=== PATIENT | male | born 1975 | race Caucasian/White ===

== ENCOUNTER 2020-03-08 12:38 | Emergency (ER) | payer OTHER, SELFPAY ==
--- NOTE | ~2020-03-08 | XR_ITS ---
EXAMINATION: XR knee RT 3V EXAM DATE: 03/08/2020 16:44 INDICATION: Abscess, anterior knee wound. TECHNIQUE: Three projections of the right knee. There is no prior study for comparison. FINDINGS: Anterior to the right tibial tuberosity and patellar tendon there is extensive swelling, e vidence of some foci of gas which could be ulceration or subcutaneous gas, and some other densities o f uncertain clinical significance (has would been packed with antibiotic beads?) There are no acute f ractures or dislocations identified. There is no subcutaneous gas. There are no radiopaque foreign bodies. There is no knee joint effusion and only mild edema within Hoffa's fat pad. IMPRESSION: Soft tissue swelling, some gas or ulceration and small round densities at site of wound. Clinical correlation. Reviewed, dictated and finalized at location A. IMPRESSION: Soft tissue swelling, some gas or ulceration and small round densit ies at site of wound. Clinical correlation.
[2020-03-08 12:54] VITALS: BP 118/81; PULSE 89; RESP 16; TEMP 36.6; O2SAT 99
--- NOTE | 2020-03-08 13:40 | ED.GENADULT ---
HPI - General Adult General Chief complaint: Wound/Laceration <Silver Parker PA-C - Last Filed: 03/08/20 18:17> Stated complaint: knee pain/infection <Silver Parker PA-C - Last Filed: 03/08/20 18:17> Time Seen by Provider: 03/08/20 13:16 <Silver Parker PA-C - Last Filed: 03/08/20 18:17> Source: patient <Silver Parker PA-C - Last Filed: 03/08/20 18:17> Mode of arrival: ambulatory <Silver Parker PA-C - Last Filed: 03/08/20 18:17> Limitations: no limitations <Silver Parker PA-C - Last Filed: 03/08/20 18:17> History of Present Illness HPI narrative: Patient is a 44-year-old male who presents with infection to the right knee patient has red tender area draining purulent drainage started as a small infected hair patient was started on Bactrim is taken 5 doses but continues to have purulent drainage presents for evaluation denies injury trauma similar occurrence or other complaints <Silver Parker PA-C - Last Filed: 03/08/20 18:17> Related Data Allergies/adverse reactions: Allergies Allergy/AdvReac Type Severity Reaction Status Date / Time No Known Allergies Allergy Verified 03/08/20 13:24 <Silver Parker PA-C - Last Filed: 03/08/20 18:17> Review of Systems Review of Systems: All systems reviewed & are unremarkable except as noted in HPI and below <Silver Parker PA-C - Last Filed: 03/08/20 18:17> [facility] Social History Social History: Social History (Updated 03/08/20 @ 13:41 by Silver Parker PA-C) Smoking status: Never smoker Gender identity (if verbalized by the patient): Male Sexual Orientation (if Verbalized by the Patient): Straight or Heterosexual <Silver Parker PA-C - Last Filed: 03/08/20 18:17> Exam Narrative: Exam Narrative: GENERAL: Well-appearing, well-nourished, and in no acute distress. HEAD: Normocephalic, atraumatic. EYES: PERRLA and EOMI. ENT: Nares clear, no rhinorrhea or epistaxis. Mucous membranes moist. CHEST: Clear to auscultation. No respiratory distress. No wheezes rales or rhonchi HEART: Regular rate and rhythm. No murmur heard. EXTREMITIES: Normal range of motion. No edema. SKIN: Warm, dry, no rash. Patient with swollen pink area over the right anterior knee with multiple open areas draining purulent drainage no surrounding cellulitic changes no lymphangitic streaking. NEURO: No focal deficits. Alert and oriented x3. Cranial nerves II through XII grossly intact PSYCH: Normal mood and affect. <LAURA Swanson Last Filed: 03/08/20 18:17> Course Course Emergency Course: Patient in the room at this time aware of case findings treatment plan and diagnosis had I&D given IV antibiotic will be referred to primary care for further evaluation <LAURA Swanson Last Filed: 03/08/20 18:17> Consultations Consultation #1: Discussed case with general surgery who notes the patient can follow with primary care and does not warrant general surgery evaluation <LAURA Swanson Last Filed: 03/08/20 18:17> Date: 03/08/20 <LAURA Swanson Last Filed: 03/08/20 18:17> Time: 17:44 <LAURA Swanson Last Filed: 03/08/20 18:17> Vital Signs Vital signs: Vital Signs Temperature 36.6 C 03/08/20 12:54 Pulse Rate 89 03/08/20 12:54 Respiratory Rate 16 03/08/20 12:54 Blood Pressure 118/81 03/08/20 12:54 Pulse Oximetry 99 03/08/20 12:54 Temperature 36.6 C 03/08/20 12:54 Pulse Rate 70 03/08/20 18:40 Respiratory Rate 18 03/08/20 18:40 Blood Pressure 123/71 03/08/20 18:40 Pulse Oximetry 98 03/08/20 18:40 <LAURA Swanson Last Filed: 03/08/20 18:17> Vital Signs Temperature 36.6 C 03/08/20 12:54 Pulse Rate 89 03/08/20 12:54 Respiratory Rate 16 03/08/20 12:54 Blood Pressure 118/81 03/08/20 12:54 Pulse Oximetry 99 03/08/20 12:54 Temperature 36.6 C 03/08/20 12:54 Pulse R
[2020-03-08] MEDS: LIDOCAINE HCL 1% LOCAL INJ 20 ML VIAL (16:27)
[2020-03-08 16:31] LABS: Basophils Percent Auto 0.4 % (0.2-1.2); Eosinophils Absolute Auto 0.1 K/mm3 (0-0.3); Eosinophils Percent Auto 1.9 % (0-4.4); Hematocrit 40.8 % (42.0-52.0); Hemoglobin 14.1 g/dL (14.0-18.0); Immature Granulocyte Absolute 0.01 K/mm3 (0.00-0.031); Immature Granulocyte Percent A 0.2 % (0-0.5); Lymphocytes Absolute Auto 1.02 K/mm3 (0.9-3.2); Lymphocytes Percent Auto 19.1 % (18.3-44.2); Mean Corpuscular HGB Conc 34.6 g/dl (32-36); Mean Corpuscular Volume 92.5 fl (80-100); Mean Platelet Volume 9.8 fl (7.4-10.4); Monocytes Absolute Auto 0.4 K/mm3 (0.1-0.6); Monocytes Percent Auto 6.6 % (2.6-8.5); Neutrophils Absolute Auto 3.8 K/mm3 (1.3-6.7); Neutrophils Percent Auto 71.8 % (45.5-73.1); Platelet Count Result 223 k/mm3 (150-375); Red Blood Count 4.41 M/mm3 (4.6-6.20); Red Cell Distribution Width 11.8 % (11.5-14.5); White Blood Count 5.3 K/mm3 (4.5-10.0)
[2020-03-08] MEDS: IBUPROFEN IV 800 MG/200 ML 800 MG/200 ML BAG 400 MG IVPB (16:50)
[2020-03-08 18:40] VITALS: BP 123/71; PULSE 70; RESP 18; O2SAT 98
== END 2020-03-08 18:43 | disposition home or self-care (01) ==
PROVIDERS: Emergency Medicine Emergency Medical Services; Emergency Provider Emergency Medicine
DX: L02.415 Cutaneous abscess of right lower limb (principal)
CPT/HCPCS: 10061; 36415; 73562; 85025; 87070; 87075; 87147; 87186; 87205; 96365; 96367; 99284; J0690; J1741